=== PATIENT | male | born 1950 | race Caucasian/White ===

== ENCOUNTER 2017-07-31 07:21 | Emergency (ER) | payer MEDICARE ==
[2017-07-31] MEDS ORDERED: Pantoprazole IV* 40 MG IV ONE (07:41)
[2017-07-31 07:54] LABS: ABS Basophils 0 10^3/ul (0-0.2); ABS Eosinophils 0 10^3/ul (0-0.6); ABS Lymphocytes 0.7 10^3/ul (1.0-4.8); ABS Monocytes 0.7 10^3/ul (0-0.8); ABS Neutrophils 12.4 10^3/ul (1.5-7.7); ABS Nucleated RBC 0 10^3/ul; Eosinophil % 0.1 % (0-6); Hematocrit 52 % (42-52); Hemoglobin 17.6 g/dl (14.0-18.0); Lymphocyte % 5.3 % (25-47); Mean Corpuscular HGB Conc 34 g/dl (31-36); Mean Corpuscular Hemoglobin 30 pg (27-31); Mean Corpuscular Volume 87 fL (80-94); Mean Platelet Volume 8.4 um3 (7.4-10.4); Nucleated Red Blood Cells % 0.1; Platelet Count 315 10^3/ul (150-450); Red Blood Count 5.93 10^6/ul (4.0-5.4); Red Cell Distribution Width 14 % (10.5-15); White Blood Count 13.9 10^3/ul (3.5-10.8)
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
[2017-07-31 08:10] LABS: EGFR Non-African American 118.3 (>60)
--- NOTE | 2017-07-31 08:40 | RAD ---
HISTORY: Epigastric pain COMPARISONS: None TECHNIQUE: Multiple transverse and longitudinal ultrasound images were obtained of the right upper quadrant of the abdomen using grayscale and color Doppler imaging. FINDINGS: The study is limited by patient bowel gas. LIVER: The liver is normal in shape, size, contour, and echogenicity. There are no focal parenchymal masses. There is normal hepatopedal flow of the portal vein on Doppler imaging. BILIARY TREE: There is no intrahepatic or extrahepatic biliary dilatation. The common duct measures 0.6 cm. GALLBLADDER: The gallbladder is well-visualized. There is no cholelithiasis, gallbladder wall thickening, pericholecystic fluid, or sonographic Sherman sign. PANCREAS: The head of the pancreas is unremarkable. The tail of the pancreas is not well visualized secondary to overlying bowel gas. RIGHT KIDNEY: The right kidney is normal in shape, size, contour, and echogenicity. There is no hydronephrosis or nephrolithiasis. The right kidney measures 11.8 x 5.1 x 5.3 cm. AORTA AND IVC: The aorta and IVC are unremarkable. FLUID: There are no pleural effusions. There is no free fluid within the hepatorenal recess. OTHER FINDINGS: None. IMPRESSION: NO ACUTE SONOGRAPHIC PATHOLOGY OF THE VISUALIZED PORTION OF THE ABDOMEN.
[2017-07-31] MEDS ORDERED: Iohexol 300* (CONTRAST) 10 ML SDV IV ONE (09:13)
--- NOTE | 2017-07-31 10:28 | RAD ---
CLINICAL HISTORY: Epigastric pain COMPARISON: Ultrasound dated July 31, 2017 TECHNIQUE: Multiple contiguous axial CT scans were obtained of the abdomen and pelvis after the administration of intravenous contrast. Coronal and sagittal multiplanar reformations are submitted for review. Oral contrast was administered. Delayed images were obtained through the abdomen and pelvis. FINDINGS: LUNG BASES: The lung bases are clear. LIVER: There are transient hepatic attenuation differences that resolves ON delayed imaging. The portal vein is patent. BILE DUCTS: There is no intrahepatic or extrahepatic biliary dilatation. GALLBLADDER: There is a small calculus of the cystic duct on axial image 27 measuring 0.3 cm. The gallbladder is normal, without pericholecystic inflammatory change. PANCREAS: The pancreas is normal, without mass or ductal dilatation. SPLEEN: Normal in size and appearance. UPPER GI TRACT: Evaluation of the gastrointestinal tract is limited by incomplete gastric distention. The upper GI tract is unremarkable. SMALL BOWEL AND MESENTERY: The small bowel is normal in contour, course, and caliber. There is no obstruction or dilatation. COLON: There is diverticulosis of the descending and sigmoid colon. There is no pericolonic inflammatory change. There is a tubular, vermiform, hollow viscus that is blind ending, and originates from the cecum, consistent with a normal appendix. There is no periappendiceal inflammatory change. This is best seen on coronal images 39 through 51 ADRENALS: Normal bilaterally. KIDNEYS: There are multiple calculi of the left kidney within the calyces and renal pelvis measuring up to 1.4 cm in size. There is moderate caliectasis of the left kidney. BLADDER: The bladder is smooth in contour. PELVIC ORGANS: The prostate is mildly enlarged. The seminal vesicles are symmetric. AORTA: There is calcific atherosclerotic disease of the abdominal aorta and its branches, without aneurysmal dilatation IVC: Unremarkable LYMPH NODES: There is no lymphadenopathy by size criteria. ABDOMINAL WALL: There is a fat-containing right inguinal hernia. There is a small fat-containing umbilical hernia. BONES AND SOFT TISSUES: There are mild diffuse degenerative changes. OTHER: None IMPRESSION: 1. LEFT NEPHROLITHIASIS WITH HYDRONEPHROSIS OF THE UPPER POLE OF LEFT KIDNEY. 2. DIVERTICULOSIS. 3. THERE IS A SMALL CALCULUS OF THE CYSTIC DUCT WITHOUT PERICHOLECYSTIC INFLAMMATORY CHANGE..
[2017-07-31 11:28] LABS: Urine Appearance Clear; Urine Blood 1+ (Negative); Urine Color Yellow; Urine Ketones Negative (Negative); Urine Protein Negative (Negative); Urine Specific Gravity > 1.060 (1.010-1.030); Urine Urobilinogen Negative (Negative)
[2017-07-31] MEDS ORDERED: Ciprofloxacin 400MG IVPREMIX(* 400 MG/200 ML BAG IVPB ONE (11:30)
[2017-07-31] MEDS ORDERED: Ondansetron ODT TAB* 4 MG PO ONE (11:34)
[2017-07-31] MEDS ORDERED: Ketorolac INJ* 30 MG/ML 1 ML VIAL IV PUSH ONE (11:35)
[2017-07-31 12:25] VITALS: BP 179/100
== END 2017-07-31 12:24 | disposition home or self-care (01) ==
LOC: ED 07:21
DX: N13.2 Hydronephrosis with renal and ureteral calculous obstruction (principal); N12 Tubulo-interstitial nephritis, not specified as acute or chronic; K80.20 Calculus of gallbladder without cholecystitis without obstruction; K57.30 Diverticulosis of large intestine without perforation or abscess without bleeding
CPT/HCPCS: 36415; 74177; 76705; 80053; 81003; 81015; 83605; 83690; 84484; 85025; 86141; 87086; 93005; 96374; 96375; 99283; A9270-GY; J0744; J1885; Q9967

== ENCOUNTER 2017-08-08 10:11 | Inpatient (IN) | payer MEDICARE ==
[2017-08-08] MEDS ORDERED: NS 0.9% 1000 ML* 1,000 ML IV ONE (10:47)
[2017-08-08 11:07] LABS: ABS Basophils 0.1 10^3/ul (0-0.2); ABS Eosinophils 0.5 10^3/ul (0-0.6); ABS Lymphocytes 0.8 10^3/ul (1.0-4.8); ABS Neutrophils 6.9 10^3/ul (1.5-7.7); ABS Nucleated RBC 0 10^3/ul; Eosinophil % 5.5 % (0-6); Hematocrit 46 % (42-52); Hemoglobin 15.6 g/dl (14.0-18.0); Lymphocyte % 8.9 % (25-47); Mean Corpuscular HGB Conc 34 g/dl (31-36); Mean Corpuscular Hemoglobin 29 pg (27-31); Mean Corpuscular Volume 87 fL (80-94); Nucleated Red Blood Cells % 0.1; Platelet Count 336 10^3/ul (150-450); Red Cell Distribution Width 14 % (10.5-15); White Blood Count 9.3 10^3/ul (3.5-10.8)
[2017-08-08 11:15] LABS: INR 1.09 (0.77-1.02)
[2017-08-08 11:28] LABS: EGFR Non-African American 46.3 (>60)
--- NOTE | 2017-08-08 11:32 | RAD ---
Indication: Weakness. Single frontal view of the chest performed at 1120 hours was reviewed. Comparison is made with previous exam dated March 19, 2012. Patient is status post tracer thoracotomy. Patient appears to be status post aortic valve replacement. Prosthesis is noted overlying the left cardiac border. There is some atelectasis or scarring in the left base which has been present as March 19, 2012. IMPRESSION: POSTOPERATIVE CHANGES ARE NOTED. PROBABLE SCARRING IN THE LEFT COSTOPHRENIC ANGLE.
--- NOTE | 2017-08-08 12:42 | RAD ---
Indication: RIGHT upper quadrant pain and increased LFTs. Comparison: July 31, 2017 CT. Technique: RIGHT upper quadrant ultrasound. Report: Appropriate direction flow documented in the portal and hepatic veins. 15.3 cm liver is mildly increased in echogenicity consistent with fatty infiltration with focal sparing at the gallbladder fossa corresponding with prior CT finding. Negative for focal hepatic lesions. Negative for intrahepatic biliary dilatation. 3.8 mm common bile duct. Adequately distended gallbladder with diffuse wall thickening measuring up to 5 mm. Dependent biliary sludge. No shadowing echogenic foci to indicate cholelithiasis. Negative for pericholecystic fluid. Negative for sonographic Sherman's sign. The pancreatic tail is partially obscured due to bowel gas with the visualized pancreas unremarkable. Negative for ascites. 13.1 cm RIGHT kidney is unremarkable. IMPRESSION: 1. Fatty infiltration of the liver. 2. Diffuse gallbladder wall thickening and biliary sludge. No visualized gallstones. Negative for pericholecystic fluid or sonographic Sherman's sign. 3. Negative for biliary dilatation.
[2017-08-08 12:53] LABS: Urine Appearance Clear; Urine Blood 3+ (Negative); Urine Color Yellow; Urine Ketones Negative (Negative); Urine Protein Negative (Negative); Urine Specific Gravity 1.011 (1.010-1.030); Urine Urobilinogen Negative (Negative)
--- NOTE | 2017-08-08 17:25 | RAD ---
HISTORY: Abnormal right upper quadrant ultrasound COMPARISONS: Ultrasound dated August 08, 2017 TECHNIQUE: Hepatobiliary scintigraphy was performed. 6.1 mCi of technetium 99m mebrofenin was administered at approximately 3:15 PM on August 08, 2017. Multiple dynamic and planar images were performed. FINDINGS: There is homogeneous hepatic excretion. There is excretion within the common duct which reaches the duodenum. There is also filling of the gallbladder and cystic duct consistent with a patent cystic duct. IMPRESSION: RADIOTRACER UPTAKE IS NOTED WITHIN THE GALLBLADDER CONSISTENT WITH A PATENT CYSTIC DUCT.
[2017-08-08] MEDS ORDERED: Potassium Chlor TAB* 20 MEQ TAB.ER PO ONE (17:46)
[2017-08-08] MEDS ORDERED: Ondansetron 40 MG VIAL* 2 MG/ML 20 ML VIAL IV PRN (18:49)
[2017-08-08] MEDS ORDERED: Acetaminophen TAB* 325 MG PO PRN (18:49)
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
--- NOTE | 2017-08-08 20:29 | RAD ---
HISTORY: Previous nephrolithiasis, hydronephrosis COMPARISONS: CT dated July 31, 2017 TECHNIQUE: Multiple transverse and longitudinal ultrasound images were obtained of the kidneys and bladder using grayscale and color Doppler imaging. FINDINGS: RIGHT KIDNEY: The right kidney is normal in shape, size, contour, and echogenicity. There is no hydronephrosis or nephrolithiasis. The right kidney measures 12.3 x 5 x 5.2 cm. LEFT KIDNEY: There are multiple shadowing echogenic foci consistent with renal stones measuring up to 1.7 cm in size. There is pelvic caliectasis of the upper pole of left kidney. The left kidney measures 12.9 x 5.8 x 6.7 cm. BLADDER: The left ureteral jet is not identified. There is focal wall thickening of the left lateral wall which may be related to the prostate gland. The prevoid bladder volume is 24 milliliters.. The postvoid bladder volume is 167 milliliters. AORTA AND IVC: No images are submitted of the vasculature. RETROPERITONEUM: Unremarkable. OTHER: The prostate gland is enlarged with intraluminal extension into the bladder, measuring 3.1 x 3.2 x 4.6 cm in size for a volume of 23.8 mL. IMPRESSION: 1. LEFT NEPHROLITHIASIS WITH HYDRONEPHROSIS OF THE UPPER POLE OF THE LEFT KIDNEY. NO LEFT URETERAL JET IS IDENTIFIED. 2. THE PROSTATE GLAND IS ENLARGED WITH MILD INTRALUMINAL EXTENSION OF THE BLADDER. THERE IS MILD BLADDER WALL THICKENING ON THE LEFT WHICH MAY BE RELATED TO THE PROSTATE GLAND BUT IS INCOMPLETELY EVALUATED ON THE CURRENT EXAMINATION. 3. 167 ML POSTVOID RESIDUAL.
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
[2017-08-09 06:38] LABS: ABS Basophils 0.1 10^3/ul (0-0.2); ABS Eosinophils 0.5 10^3/ul (0-0.6); ABS Monocytes 0.8 10^3/ul (0-0.8); ABS Nucleated RBC 0 10^3/ul; Eosinophil % 6.3 % (0-6); Hematocrit 44 % (42-52); Hemoglobin 14.7 g/dl (14.0-18.0); Lymphocyte % 13.1 % (25-47); Mean Corpuscular HGB Conc 33 g/dl (31-36); Mean Corpuscular Hemoglobin 29 pg (27-31); Mean Corpuscular Volume 87 fL (80-94); Mean Platelet Volume 8.5 um3 (7.4-10.4); Nucleated Red Blood Cells % 0; Platelet Count 346 10^3/ul (150-450); Red Blood Count 5.03 10^6/ul (4.0-5.4); Red Cell Distribution Width 14 % (10.5-15); White Blood Count 7.3 10^3/ul (3.5-10.8)
[2017-08-09 06:54] LABS: EGFR Non-African American 53.6 (>60)
[2017-08-09] MEDS: Lisinopril TAB* 5 MG PO SCH (08:25)
--- NOTE | 2017-08-09 15:45 | PN ---
Subjective Date of Service: 08/09/17 Interval History: Patient continues to be pain free. Dark urine, no dysuria or hesitancy. No F/C, N/V, CP, SOB, Dizziness, Diarrhea, constipation, or other pain. Discussed surgical options with patient and surrogate decision makers as well as general surgery and urology. Family History: Unchanged from Admission Social History: Unchanged from Admission Past Medical History: Unchanged from Admission Objective Active Medications: Acetaminophen (Tylenol Tab*) 650 mg PO Q6H PRN PRN Reason: FEVER/PAIN Lactated Ringer's (Lactated Ringers 1000 Ml Bag*) 1,000 mls @ 75 mls/hr IV PER RATE [facility] Stop: 08/10/17 08:19 Last Admin: 08/09/17 12:44 Dose: 75 mls/hr Lisinopril (Prinivil Tab*) 5 mg PO DAILY [facility] Last Admin: 08/09/17 08:25 Dose: 5 mg Ondansetron HCl (Zofran 40 Mg Vial*) 4 mg IV Q6H PRN PRN Reason: NAUSEA Oxygen Devices in Use Now: None Appearance: Patient is a 66yo Male who appears stated age and is sitting in the bed in [facility]. Eyes: No Scleral Icterus, PERRLA Ears/Nose/Mouth/Throat: NL Teeth, Lips, Gums, Clear Oropharnyx, Mucous Membranes Moist Neck: NL Appearance and Movements; NL JVP, Trachea Midline Respiratory: Symmetrical Chest Expansion and Respiratory Effort, Clear to Auscultation Cardiovascular: NL Sounds; No Murmurs; No JVD, RRR, No Edema Abdominal: NL Sounds; No Tenderness; No Distention, No Hepatosplenomegaly Lymphatic: No Cervical Adenopathy Extremities: No Edema, No Clubbing, Cyanosis Skin: No Rash or Ulcers, No Nodules or Sclerosis Neurological: Alert and Oriented x 3, NL Sensation, NL Gait, - - Decreased strength in LUE. Strabismus. Stable Result Diagrams: 08/09/17 06:13 08/09/17 06:13 Additional Lab and Data: Lab Results Assess/Plan/Problems-Billing Assessment: Patient is a 66yo male with a PMH for TBI, PAF, MVP S/P repair who is admitted due to Symptomatic Cholelithiasis and Nephrolithiasis with the tentative plan for surgery on Saturday. - Patient Problems (1) Cholelithiasis Current Visit: Yes Status: Acute Comment: Likely with choledocholithiasis with passed stone. LFTs trending down. Postive HIDA and Gallbladder US showing wall thickening and sludge. No pain currently. Appreciate Surgical input. Tentative plan for surgery on Saturday pending family decision. (2) Nephrolithiasis Current Visit: Yes Status: Acute Code(s): N20.0 - CALCULUS OF KIDNEY SNOMED Code(s): 14826522 Comment: 2 large kidney stones in left kidney with partial hydronephrosis. Will need to be stented before surgery. Tentatively planned for Saturday. Does not need urgent intervention. Appreciate urology input. Will be seen in consultation. (3) PAF (paroxysmal atrial fibrillation) Current Visit: Yes Status: Acute Code(s): I48.0 - PAROXYSMAL ATRIAL FIBRILLATION SNOMED Code(s): 976872787 Comment: NSR. No palpitations. S/P Maze procedure. Likely related to MVP which has resolved. (4) HTN (hypertension) Current Visit: Yes Status: Acute Code(s): I10 - ESSENTIAL (PRIMARY) HYPERTENSION SNOMED Code(s): 51964520 Comment: Hypertensive. Started on Lisinopril earlier this month by Dr. Okeefe which he has not been taking. Restarted in hospital. (5) DVT prophylaxis Current Visit: Yes Status: Acute Code(s): XQO1412 - SNOMED Code(s): 643188849 Comment: SCDs and Ambulation. (6) MVP (mitral valve prolapse) Current Visit: Yes Status: Acute Code(s): I34.1 - NONRHEUMATIC MITRAL (VALVE ) PROLAPSE SNOMED Code(s): 431217643 Comment: S/P repair. Will monitor for fluid overload. (7) Full code status Current Visit: Yes Status: Acute Code(s): Z78.9 - OTHER SPECIFIED HEALTH STATUS SNOMED Code(s): 313020453 Status and Disposition: Inpatient pending possible surgery.
--- NOTE | 2017-08-09 21:12 | CONS ---
CC: Jimmy Alvarez MD * CONSULTATION REPORT: DATE OF CONSULT: 08/09/17 CHIEF COMPLAINT: Abdominal pain and jaundice. HISTORY OF PRESENT ILLNESS: Mr. Gamez is a 66-year-old gentleman with a past medical history significant for traumatic brain injury with memory difficulties , mitral valve regurgitation, atrial fibrillation and recent diagnosis of urinary tract infection who was admitted to the hospitalist service on . The patient had presented 10 days ago to the emergency department with upper abdominal pain, ultimately diagnosed with urinary tract infection and treated with oral ciprofloxacin for 2 weeks which he did take. The patient presented to the emergency department on 08/08/17 with jaundice, nausea and this had been noted by his friend and healthcare proxy, Nicole. He was brought to the emergency room in [facility] where he was noted to have no abdominal tenderness, but elevated total bilirubin and transaminases. An ultrasound of the abdomen was completed, which demonstrated fatty infiltration of the liver, diffuse gallbladder wall thickening and biliary sludge with no visualized gallstones and no evidence of pericholecystic fluid or Sherman sign. The common bile duct was 3.8 mm. The patient was sent also for HIDA scan, which demonstrated nonvisualization of the gallbladder. He was admitted to the hospitalist service and surgical consultation was requested. At present, the patient denies any abdominal pain. He is denying nausea, vomiting, fevers or chills. His healthcare proxy at bedside notes that his jaundice does seem to be improved. PAST MEDICAL HISTORY: Significant for the above-mentioned illnesses as well as obstructive sleep apnea and borderline hypertension. PAST SURGICAL HISTORY: Significant for mitral valve repair and appendectomy. MEDICATIONS: Include: 1. Cipro. 2. Zofran. 3. Ibuprofen. ALLERGIES: None known. FAMILY HISTORY: Reviewed from the chart and is noncontributory. SOCIAL HISTORY: He lives alone. He does not smoke or drink. PHYSICAL EXAM: He is a 66-year-old male, in no acute distress. Vital Signs: Temperature 97.9, blood pressure 137/67, pulse 77, respirations 18, O2 sat 98%. Head is normocephalic, atraumatic and sclerae anicteric. His abdomen is without scars and nondistended, soft, nontender. There are no palpable masses. No palpable hepatosplenomegaly. DIAGNOSTIC STUDIES/LAB DATA: From 08/08/17 and 08/09/17 were reviewed. His WBC is normal. Hemoglobin and hematocrit are normal as is platelet count. Chemistry is notable for total bilirubin initially 1.9 down to 1.4 today. AST of 90 down to 59, ALT of 181 down to 134 and alkaline phosphatase of 253 down to 236. Radiographic imaging was reviewed. His prior gallbladder ultrasound from showed no evidence of cholelithiasis, gallbladder wall thickening or fluid though CT scan done the same day notes gallstone present 3 mm size in the cystic duct with normal appearing gallbladder. The ultrasound from 08/08/17 indicates a thickened gallbladder wall as reported above, biliary sludge and common bile duct of 3.8 mm. Images of his HIDA scan were reviewed as well. He had an ultrasound of his kidney demonstrating nephrolithiasis on the left with hydronephrosis and enlarged prostate. He also had bladder wall thickening on the left. IMPRESSION: A 66-year-old gentleman with traumatic brain injury, history of mitral valve repair, history of atrial fibrillation, who has apparently a 10- day history of epigastric abdominal pain likely related to symptomatic gallstones and what appears to be a passed common bile duct stone. He is improving and there appears to be no need for urgent surgical intervention. PLAN/RECOMMENDATIONS: I discussed the plan with the patient and his healthcare proxy, Nicole. I explained the nature of gallstones, the potential complications and the role for surgical removal of the gallbladder. I recommended laparoscopic cholecystectomy though the timing of this is in question. The patient states he would be agreeable to the procedure. Although he has a number health issues, I did explain that I felt that the risks of surgery were outweighed by the benefits of surgery in his situation as he is certainly at risk for severe complications of gallstones including pancreatitis. It appears that the patient will be undergoing additional medical evaluation, in particular for his kidney stone. I would continue to monitor his LFTs, limit his oral intake for now and I will discuss his case with Gastroenterology in order to have their input. I did discuss with the patient and his proxy the option of ERCP with endoscopic sphincterotomy without cholecystectomy; however, I did not recommend that procedure at this time. [facility] will continue to follow. [id number]/[facility] #: [id number] TYRESE
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
[2017-08-10] MEDS: Lisinopril TAB* 5 MG PO SCH (07:55)
[2017-08-10 09:17] LABS: EGFR Non-African American 55.6 (>60)
[2017-08-10] MEDS: NS 0.9% 1000 ML* 1,000 ML IV SCH ×2 (12:33→23:27)
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
--- NOTE | 2017-08-10 15:54 | PN ---
Subjective Date of Service: 08/10/17 Interval History: Patient continues to have no complaints. No pain, F/C, N/V, SOB, diarrhea, CP, Changes in urine, pain with urination, or other pain. Patient is still amenable to surgery pending family meeting with brother and POA tomorrow to discuss risks and benefits. Family History: Unchanged from Admission Social History: Unchanged from Admission Past Medical History: Unchanged from Admission Objective Active Medications: Acetaminophen (Tylenol Tab*) 650 mg PO Q6H PRN PRN Reason: FEVER/PAIN Sodium Chloride (Ns 0.9% 1000 Ml*) 1,000 mls @ 100 mls/hr IV PER RATE [facility] Last Admin: 08/10/17 12:33 Dose: 100 mls/hr Lisinopril (Prinivil Tab*) 5 mg PO DAILY [facility] Last Admin: 08/10/17 07:55 Dose: 5 mg Ondansetron HCl (Zofran 40 Mg Vial*) 4 mg IV Q6H PRN PRN Reason: NAUSEA Vital Signs - 8 hr 08/10/17 08/10/17 08/10/17 07:57 11:32 15:14 Temperature 97.9 F 97.3 F Pulse Rate 71 71 Respiratory 18 18 15 Rate Blood Pressure 140/84 137/87 (mmHg) O2 Sat by Pulse 97 98 Oximetry Oxygen Devices in Use Now: None Appearance: Patient is a 66yo male who appears stated age and is sitting in the bed in NAD. Eyes: No Scleral Icterus, PERRLA Ears/Nose/Mouth/Throat: NL Teeth, Lips, Gums, Clear Oropharnyx, Mucous Membranes Moist Neck: NL Appearance and Movements; NL JVP, Trachea Midline Respiratory: Symmetrical Chest Expansion and Respiratory Effort, Clear to Auscultation Cardiovascular: NL Sounds; No Murmurs; No JVD, RRR, No Edema Abdominal: NL Sounds; No Tenderness; No Distention, No Hepatosplenomegaly Lymphatic: No Cervical Adenopathy Extremities: No Edema, No Clubbing, Cyanosis Skin: No Rash or Ulcers, No Nodules or Sclerosis Neurological: Alert and Oriented x 3, NL Sensation, NL Muscle Strength and Tone , - - CN II-XII intact. Result Diagrams: 08/09/17 06:13 08/10/17 08:40 Additional Lab and Data: Lab Results Assess/Plan/Problems-Billing Assessment: Patient is a 66yo male with a PMH for TBI, PAF, MVP S/P repair who is admitted due to Symptomatic Cholelithiasis and Nephrolithiasis with the tentative plan for surgery on Saturday. - Patient Problems (1) Cholelithiasis Current Visit: Yes Status: Acute Comment: Likely with choledocholithiasis with passed stone. LFTs trending down. Postive HIDA and Gallbladder US showing wall thickening and sludge. No pain currently. Appreciate Surgical input. Tentative plan for surgery on Saturday pending family decision. (2) Nephrolithiasis Current Visit: Yes Status: Acute Code(s): N20.0 - CALCULUS OF KIDNEY SNOMED Code(s): 09689340 Comment: 2 large kidney stones in left kidney with partial hydronephrosis. Will need to be stented before surgery. Tentatively planned for Saturday. Does not need urgent intervention. Appreciate urology input. Will need eventual percutaneous nephrolithotomy. (3) PAF (paroxysmal atrial fibrillation) Current Visit: Yes Status: Acute Code(s): I48.0 - PAROXYSMAL ATRIAL FIBRILLATION SNOMED Code(s): 903176220 Comment: NSR. No palpitations. S/P Maze procedure. Likely related to MVP which has resolved. (4) HTN (hypertension) Current Visit: Yes Status: Acute Code(s): I10 - ESSENTIAL (PRIMARY) HYPERTENSION SNOMED Code(s): 34313502 Comment: Hypertensive. Started on Lisinopril earlier this month by Dr. Okeefe which he has not been taking. Restarted in hospital. (5) DVT prophylaxis Current Visit: Yes Status: Acute Code(s): VAZ7132 - SNOMED Code(s): 438146263 Comment: SCDs and Ambulation. (6) TWILA (acute kidney injury) Current Visit: Yes Status: Acute Code(s): N17.9 - ACUTE KIDNEY FAILURE, UNSPECIFIED SNOMED Code(s): 84289408 Comment: Improving with fluids. FeNa indicates prerenal process. Continue gentle IV hydration. (7) MVP (mitral valve prolapse) Current Visit: Yes Status: Acute Code(s): I34.1 - NONRHEUMATIC MITRAL (VALVE ) PROLAPSE SNOMED Code(s): 421788405 Comment: S/P repair. Will monitor for fluid overload. (8) Full code status Current Visit: Yes Status: Acute Code(s): Z78.9 - OTHER SPECIFIED HEALTH STATUS SNOMED Code(s): 442893689 Status and Disposition: Inpatient pending possible surgery.
--- NOTE | 2017-08-10 18:31 | PN ---
Progress Note - Progress Note Date of Service: 08/10/17 SOAP: Subjective: Seen this AM. Denies pain, N/V. Objective: Afeb VSS Anicteric Abd: soft, benign Laboratory Results - last 24 hr 08/10/17 08:40 Sodium 141 Potassium 3.8 Chloride 105 Carbon Dioxide 30 Anion Gap 6 BUN 14 Creatinine 1.29 H Est GFR ( Amer) 71.4 Est GFR (Non-Af Amer) 55.6 BUN/Creatinine Ratio 10.9 Glucose 101 H Calcium 8.6 Total Bilirubin 1.20 H AST 30 ALT 94 H Alkaline Phosphatase 204 H C-Reactive Protein 13.71 H Total Protein 6.0 L Albumin 3.1 L Globulin 2.9 Albumin/Globulin Ratio 1.1 Assessment: Passed CBD stone. Improving. Plan: Surgery on 08/[address] Babb. Will coordinate with Dr. Awan for stent. Can try low fat diet but NPO after MN on 08/11.
[2017-08-11 06:17] LABS: EGFR Non-African American 54.6 (>60)
[2017-08-11] MEDS: Lisinopril TAB* 5 MG PO SCH (07:32)
[2017-08-11] MEDS: NS 0.9% 1000 ML* 1,000 ML IV SCH ×2 (08:59→10:40)
[2017-08-11] MEDS ORDERED: Magnesium Sulfate 2 GM IV* 2 GM/50 ML BAG IVPB ONE (11:21)
--- NOTE | 2017-08-11 11:52 | PN ---
Progress Note - Progress Note Date of Service: 08/11/17 SOAP: Subjective: Denies pain, N/V. Objective: Vital Signs Temp 97.9 F 08/11/17 07:50 Pulse 68 08/11/17 07:50 Resp 18 08/11/17 07:50 BP 136/82 08/11/17 07:50 Pulse Ox 98 08/11/17 07:50 Anicteric sclera abd: soft, ND, NT Intake & Output 08/10/17 08/11/17 08/11/17 18:59 06:59 18:59 Intake Total 2954 411 1480 Balance 4460 333 6412 Intake: IV Fluids 300 1000 NS 300 1000 Oral 1570 0 240 Other: Estimated Void Medium # Bowel Movements 1 Estimated Stool Amount Medium # Voids 3 1 Assessment: Passed CBD stone. Plan: Lap rodriguez tomorrow. NPO after MN.
--- NOTE | 2017-08-11 15:34 | PN ---
Subjective Date of Service: 08/11/17 Interval History: Patient continues to have no pain, F/C, N/V, abdominal pain, diarrhea, CP, SOB, dysuria, flank pain, dizziness, or other pain. Discussed at length with POA, Brother and patient the risks and benefits of various timings of surgery and stent placement and they were in agreement that the ideal timing would be tomorrow for both procedures. Family History: Unchanged from Admission Social History: Unchanged from Admission Past Medical History: Unchanged from Admission Objective Active Medications: Acetaminophen (Tylenol Tab*) 650 mg PO Q6H PRN PRN Reason: FEVER/PAIN Sodium Chloride (Ns 0.9% 1000 Ml*) 1,000 mls @ 50 mls/hr IV PER RATE [facility] Stop: 08/13/17 06:25 Last Admin: 08/11/17 10:40 Dose: 50 mls/hr Ondansetron HCl (Zofran 40 Mg Vial*) 4 mg IV Q6H PRN PRN Reason: NAUSEA Vital Signs - 8 hr 08/11/17 08/11/17 07:34 07:50 Temperature 97.9 F Pulse Rate 68 Respiratory 16 18 Rate Blood Pressure 136/82 (mmHg) O2 Sat by Pulse 98 Oximetry Oxygen Devices in Use Now: None Appearance: Patient is a 66yo male who appears stated age and is sitting in the bed in NAD. Eyes: PERRLA, - - Slight residual icterus. Ears/Nose/Mouth/Throat: NL Teeth, Lips, Gums, Clear Oropharnyx, Mucous Membranes Moist Neck: NL Appearance and Movements; NL JVP, Trachea Midline Respiratory: Symmetrical Chest Expansion and Respiratory Effort, Clear to Auscultation Cardiovascular: NL Sounds; No Murmurs; No JVD, RRR, No Edema Abdominal: NL Sounds; No Tenderness; No Distention, No Hepatosplenomegaly Lymphatic: No Cervical Adenopathy Extremities: No Edema, No Clubbing, Cyanosis Skin: No Rash or Ulcers, No Nodules or Sclerosis Neurological: Alert and Oriented x 3, NL Sensation, - - Left arm weakness, Strabismus. A/Ox3. Result Diagrams: 08/09/17 06:13 08/11/17 05:33 Additional Lab and Data: Lab Results Assess/Plan/Problems-Billing Assessment: Patient is a 66yo male with a PMH for TBI, PAF, MVP S/P repair who is admitted due to Symptomatic Cholelithiasis and Nephrolithiasis with the tentative plan for surgery on Saturday. - Patient Problems (1) Cholelithiasis Current Visit: Yes Status: Acute Comment: Likely with choledocholithiasis with passed stone. LFTs trending down. Postive HIDA and Gallbladder US showing wall thickening and sludge. No pain currently. Appreciate Surgical and GI input. Cholecystectomy Tomorrow with stent placement intraoperatively. Patient is medically optimized for surgery. RCRI of 0 indicating a .4% risk of cardiovascular event. No functional limitations at baseline. Previous Echo shows only trace mitral regurgitation and stenosis. (2) Nephrolithiasis Current Visit: Yes Status: Acute Code(s): N20.0 - CALCULUS OF KIDNEY SNOMED Code(s): 91665158 Comment: 2 large kidney stones in left kidney with partial hydronephrosis. Will need to be stented before surgery. Planned for Saturday. Does not need urgent intervention. Appreciate urology input. Will need eventual percutaneous nephrolithotomy. (3) PAF (paroxysmal atrial fibrillation) Current Visit: Yes Status: Acute Code(s): I48.0 - PAROXYSMAL ATRIAL FIBRILLATION SNOMED Code(s): 943354464 Comment: NSR. No palpitations. S/P Maze procedure. Likely related to MVP which has resolved. (4) HTN (hypertension) Current Visit: Yes Status: Acute Code(s): I10 - ESSENTIAL (PRIMARY) HYPERTENSION SNOMED Code(s): 21468508 Comment: Hypertensive. Started on Lisinopril earlier this month by Dr. Okeefe which he has not been taking. Restarted in hospital. (5) DVT prophylaxis Current Visit: Yes Status: Acute Code(s): FWY8106 - SNOMED Code(s): 178682300 Comment: SCDs and Ambulation. (6) TWILA (acute kidney injury) Current Visit: Yes Status: Acute Code(s): N17.9 - ACUTE KIDNEY FAILURE, UNSPECIFIED SNOMED Code(s): 90784447 Comment: Improving with fluids. FeNa indicates prerenal process. Continue gentle IV hydration. (7) MVP (mitral valve prolapse) Current Visit: Yes Status: Acute Code(s): I34.1 - NONRHEUMATIC MITRAL (VALVE ) PROLAPSE SNOMED Code(s): 130824870 Comment: S/P repair. Will monitor for fluid overload. Only trace on Most recent echo. (8) Full code status Current Visit: Yes Status: Acute Code(s): Z78.9 - OTHER SPECIFIED HEALTH STATUS SNOMED Code(s): 741781723 Status and Disposition: Inpatient pending possible surgery.
[2017-08-12] MEDS: NS 0.9% 1000 ML* 1,000 ML IV SCH (05:11)
--- NOTE | 2017-08-12 08:25 | PN ---
Subjective Date of Service: 08/12/17 Interval History: Mr. Gamez reports that he feels a bit funny and out of it after surgery. He denies chest pain, SOB, nausea, or abdominal pain. Family History: Unchanged from Admission Social History: Unchanged from Admission Past Medical History: Unchanged from Admission Objective Active Medications: Acetaminophen (Tylenol Tab*) 650 mg PO Q6H PRN Sodium Chloride (Ns 0.9% 1000 Ml*) 1,000 mls @ 50 mls/hr IV PER RATE [facility] Ondansetron HCl (Zofran 40 Mg Vial*) 4 mg IV Q6H PRN Vital Signs: Temp Pulse Resp BP Pulse Ox 98.0 F 65 16 143/87 96 08/12/17 07:45 08/12/17 07:45 08/12/17 07:48 08/12/17 07:45 08/12/17 07:45 Oxygen Devices in Use Now: None Appearance: Male lying in bed in NAD Eyes: No Scleral Icterus Ears/Nose/Mouth/Throat: Mucous Membranes Moist Neck: Trachea Midline Respiratory: Symmetrical Chest Expansion and Respiratory Effort, Clear to Auscultation Cardiovascular: NL Sounds; No Murmurs; No JVD, No Edema Abdominal: NL Sounds; No Tenderness; No Distention Lymphatic: No Cervical Adenopathy Extremities: No Edema Skin: No Rash or Ulcers Neurological: Alert and Oriented x 3, NL Muscle Strength and Tone Nutrition: Taking PO's Result Diagrams: 08/12/17 08:16 08/12/17 08:16 Additional Lab and Data: . Assess/Plan/Problems-Billing Assessment: Mr. Gamez is a 66yo male with a PMH for TBI, PAF, MVP S/P repair who is admitted due to symptomatic cholelithiasis and nephrolithiasis now s/p cholecystectomy. - Patient Problems (1) Choledocholithiasis Comment: - Now s/p cholecystectomy. - Appreciate Surgical and GI input. (2) Nephrolithiasis Comment: - Now s/p ureteral stent. - Appreciate urology input. Will need eventual percutaneous nephrolithotomy. (3) TWILA (acute kidney injury) Comment: - Resolved with hydration. (4) HTN (hypertension) Comment: - SBP 140-160s. - Continue lisinopril. (5) MVP (mitral valve prolapse) Comment: - S/P repair. Will monitor for fluid overload. (6) PAF (paroxysmal atrial fibrillation) Comment: - NSR. No palpitations. S/P Maze procedure. Likely related to MVP which has resolved. (7) DVT prophylaxis Comment: - SCDs and Ambulation. (8) Full code status Comment: Status and Disposition: Inpatient. Anticipate discharge to home when medically stable.
[2017-08-12 08:32] LABS: ABS Basophils 0.1 10^3/ul (0-0.2); ABS Eosinophils 0.5 10^3/ul (0-0.6); ABS Lymphocytes 1.2 10^3/ul (1.0-4.8); ABS Monocytes 0.6 10^3/ul (0-0.8); ABS Neutrophils 5.8 10^3/ul (1.5-7.7); ABS Nucleated RBC 0 10^3/ul; Eosinophil % 5.8 % (0-6); Hematocrit 44 % (42-52); Hemoglobin 14.7 g/dl (14.0-18.0); Lymphocyte % 14.4 % (25-47); Mean Corpuscular HGB Conc 33 g/dl (31-36); Mean Corpuscular Hemoglobin 29 pg (27-31); Mean Corpuscular Volume 88 fL (80-94); Mean Platelet Volume 8.4 um3 (7.4-10.4); Nucleated Red Blood Cells % 0; Platelet Count 311 10^3/ul (150-450); Red Blood Count 5.06 10^6/ul (4.0-5.4); Red Cell Distribution Width 14 % (10.5-15); White Blood Count 8.1 10^3/ul (3.5-10.8)
[2017-08-12 08:53] LABS: EGFR Non-African American 62.2 (>60)
--- NOTE | 2017-08-12 10:31 | PN ---
Progress Note - Progress Note Date of Service: 08/12/17 SOAP: Subjective: Patient seen and examined this morning Clinical history and work-up all reviewed I discussed his care with Dr. Jarrell and Dr. Awan He feels well today-no abdominal pain and he is hungry Objective: Temp Pulse Resp BP Pulse Ox 98.0 F 65 16 143/87 96 08/12/17 07:45 08/12/17 07:45 08/12/17 07:48 08/12/17 07:45 08/12/17 07:45 PEX: Comfortable sitting up in bed Lungs are clear Abd is soft and non-distended. There is no tenderness or mass noted. Laboratory Results - last 24 hr 08/12/17 08/12/17 08:16 08:16 WBC 8.1 RBC 5.06 Hgb 14.7 Hct 44 MCV 88 MCH 29 MCHC 33 RDW 14 Plt Count 311 MPV 8.4 Neut % (Auto) 71.5 Lymph % (Auto) 14.4 L Villalba % (Auto) 7.5 H Eos % (Auto) 5.8 Baso % (Auto) 0.8 Absolute Neuts (auto) 5.8 Absolute Lymphs (auto) 1.2 Absolute Monos (auto) 0.6 Absolute Eos (auto) 0.5 Absolute Basos (auto) 0.1 Absolute Nucleated RBC 0 Nucleated RBC % 0 Sodium 142 Potassium 3.5 Chloride 106 Carbon Dioxide 30 Anion Gap 6 BUN 11 Creatinine 1.17 Est GFR ( Amer) 80.0 Est GFR (Non-Af Amer) 62.2 BUN/Creatinine Ratio 9.4 Glucose 93 Calcium 8.3 L Total Bilirubin 0.90 Direct Bilirubin 0.30 H Indirect Bilirubin 0.6 AST 20 ALT 51 Alkaline Phosphatase 161 H Total Protein 6.0 L Albumin 3.1 L Globulin 2.9 Albumin/Globulin Ratio 1.1 US/CT/Labs/HIDA all reviewed Assessment: Epigastric pain now resolved, elevated LFT's now returning to normal, HIDA scan shows non-filling of the GB and last US showed mild thickening of the GB wall but no obvious gallstones. His recent symptoms are consistent with biliary disease. He has no further abdominal pain. He may have passed a stone and now appears to have chronic cholecystitis. Plan: Recommend proceeding with laparoscopic cholecystectomy to prevent further gallbladder symptoms and infection. I discussed all of the above with him and our recommendation of proceeding with surgery. He would like to proceed. The procedure was discussed with him in detail, and the risks of, but not limited to, of bleeding, infection, bile duct injury, bile leak, injury to peritoneal and retroperitoneal structures, open procedure, drain placement, risks of blood clots, and anesthetic risks all explained. I will also talk with his caregiver, Nicole who he says will be present today. PLAN: Laparoscopic cholecystectomy today.
[2017-08-12] MEDS ORDERED: Iohexol 180 (CONTRAST) 10 ML SDV IV ONE ×2 (10:54→12:00)
[2017-08-12] MEDS ORDERED: Labetalol IV* 5 MG/ML 20 ML VIAL ONE (11:31)
[2017-08-12] MEDS ORDERED: cefTRIAXone(*) 1 GM ADVAN/BAG ONE (11:40)
[2017-08-12] MEDS ORDERED: Ondansetron ODT TAB* 4 MG ONE (11:51)
[2017-08-12] MEDS ORDERED: Lidocaine 2% PF * 5 ML VIAL ONE (11:51)
[2017-08-12] MEDS ORDERED: Midazolam* 1 MG/ML 5 ML VIAL (5 MG) ONE (11:51)
[2017-08-12] MEDS ORDERED: Dexamethasone IV* 4 MG/ML 1 ML (4 MG) ONE (11:51)
[2017-08-12] MEDS ORDERED: fentaNYL* 50 MCG/ML 5 ML VIAL (250 MCG VIAL) ONE (11:51)
[2017-08-12] MEDS ORDERED: Cisatracurium* 2 MG/ML MDV 5 ML ONE (11:51)
[2017-08-12] MEDS ORDERED: Propofol* 10 MG/ML 20 ML BTL IV PUSH ONE ×2 (11:51→13:24)
[2017-08-12] MEDS ORDERED: KETAMINE HCL* 50 MG/ML 10 ML VIAL ONE (11:51)
[2017-08-12] MEDS ORDERED: EPHEDrine (Pressors)* 50 MG/ML VIAL ONE (11:51)
[2017-08-12] MEDS ORDERED: Bupivacaine 0.5% SDV PF* 30ML VIAL ONE (13:29)
[2017-08-12] MEDS ORDERED: Lidocaine 1% MPF wEPI 200,000* 30 ML SDV ONE (13:29)
[2017-08-12] MEDS ORDERED: Naloxone* 0.4 MG/ML 1 ML VIAL IV PRN (13:34)
[2017-08-12] MEDS ORDERED: Ondansetron ODT TAB* 4 MG PO PRN (13:34)
[2017-08-12] MEDS ORDERED: fentaNYL* 50 MCG/ML 2 ML VIAL (100 MCG VIAL) IV PRN (13:34)
[2017-08-12] MEDS ORDERED: fentaNYL* 50 MCG/ML 2 ML VIAL (100 MCG VIAL) ONE ×2 (13:49→14:43)
--- NOTE | 2017-08-12 13:49 | RAD ---
INDICATION: Cystoscopy, left stent insertion COMPARISONS: Ultrasound dated August 08, 2017 TECHNIQUE: Fluoroscopy was provided for a retrograde pyelogram and stent placement. Total fluoroscopy time is: 5 seconds FINDINGS: Spot images demonstrate contrast within the left renal collecting system. A ureteral stent is noted. IMPRESSION: FLUOROSCOPY WAS PROVIDED FOR A RETROGRADE PYELOGRAM AND STENT PLACEMENT CPT II Codes: G9500
--- NOTE | 2017-08-12 14:58 | BRIEFOPN ---
Brief Operative Note - Surgery Procedures: Procedures OPERATIVE REPORT PRE-OP: Acute cholecystitis POST-OP: Acute acalculous cholecystitis PROCEDURE: Laparoscopic subtotoal cholecystectomy, fenestrated technique SURGEON: MD Skinny ANESTHESIA:Local and General with Dr. Choudhury ASST: Mannie Lucas NP IVF: 1 liter of crystalloid EBL: min SPECIMEN: Portion of gallbladder DRAIN: #10 MARIAM in right upper quadrant WOUND CLASS: 3 COMPLICATIONS: none TO PACU
[2017-08-12] MEDS ORDERED: oxyCODONE/Acetamin 5/325 MG* TAB PO PRN (15:00)
[2017-08-12] MEDS ORDERED: Morphine VIAL* 4 MG/ML VIAL (1 ml vial) IV PRN (15:01)
[2017-08-12] MEDS ORDERED: Piperacillin/Tazobac ADVAN(*) 3.375 GM in NS 0.9% 100 ML* 100 ML IVPB ONE (15:02)
[2017-08-12] MEDS ORDERED: Zosyn per Pharmacy* NOTE FOLLOW UP SCH (16:00)
[2017-08-12] MEDS: ZOSYN 3.375 GM Q8H per EXTENDED INFUSION IVPB SCH ×2 (21:27)
[2017-08-13] MEDS: ZOSYN 3.375 GM Q8H per EXTENDED INFUSION IVPB SCH ×6 (05:56→21:01)
--- NOTE | 2017-08-13 07:46 | PN ---
Subjective Date of Service: 08/13/17 Interval History: Mr. Gamez reports that he is feeling quite well today. He is tolerating oral intake and reports no abdominal pain. He further denies chest pain, SOB, or nausea. He is ambulating in his room independently. Family History: Unchanged from Admission Social History: Unchanged from Admission Past Medical History: Unchanged from Admission Objective Active Medications: Acetaminophen (Tylenol Tab*) 650 mg PO Q6H PRN Piperacillin Sod/Tazobactam (Sod 3.375 gm/ Sodium Chloride) 100 mls @ 25 mls/ hr IVPB Q8H [facility] Morphine Sulfate (Morphine Vial*) 2 mg IV Q2H PRN Ondansetron HCl (Zofran 40 Mg Vial*) 4 mg IV Q6H PRN Oxycodone/Acetaminophen (Percocet 5/325 Tab*) 1 tab PO Q4H PRN Pharmacy Consult (Zosyn Per Pharmacy*) 1 note FOLLOW UP .ZOSYN PER PHARMACY [facility] Vital Signs: Temp Pulse Resp BP Pulse Ox 97.9 F 72 18 142/74 96 08/13/17 07:34 08/13/17 07:34 08/13/17 08:04 08/13/17 07:34 08/13/17 07:34 Oxygen Devices in Use Now: None Appearance: Male lying in bed in NAD Eyes: No Scleral Icterus Ears/Nose/Mouth/Throat: Mucous Membranes Moist Neck: Trachea Midline Respiratory: Symmetrical Chest Expansion and Respiratory Effort, Clear to Auscultation Cardiovascular: NL Sounds; No Murmurs; No JVD, No Edema Abdominal: NL Sounds; No Tenderness; No Distention Extremities: No Edema Skin: - - Scattered raised, circular rash to lower extremities (patient reports is chronic and related to lupus) Neurological: Alert and Oriented x 3, NL Muscle Strength and Tone Nutrition: Taking PO's Result Diagrams: 08/12/17 08:16 08/12/17 08:16 Additional Lab and Data: . Assess/Plan/Problems-Billing Assessment: Mr. Gamez is a 66yo male with a PMH for TBI, PAF, MVP S/P repair who is admitted due to symptomatic cholelithiasis and nephrolithiasis now s/p cholecystectomy. - Patient Problems (1) Choledocholithiasis Comment: - Now POD # 1 s/p cholecystectomy with MARIAM drain. - Appreciate Surgical and GI input. - Continue zosyn. (2) Nephrolithiasis Comment: - Now s/p ureteral stent. - Appreciate urology input. Will need eventual percutaneous nephrolithotomy. (3) TWILA (acute kidney injury) Comment: - Resolved with hydration. (4) HTN (hypertension) Comment: - SBP 140-160s. - Continue lisinopril. (5) MVP (mitral valve prolapse) Comment: - S/P repair. Will monitor for fluid overload. (6) PAF (paroxysmal atrial fibrillation) Comment: - NSR. No palpitations. S/P Maze procedure. Likely related to MVP which has resolved. (7) DVT prophylaxis Comment: - SCDs and Ambulation. (8) Full code status Comment: Status and Disposition: Inpatient. Anticipate discharge to home when medically stable.
--- NOTE | 2017-08-13 09:01 | OP ---
OPERATIVE REPORT: DATE OF OPERATION: 08/12/17 DATE OF : 48 SURGEON: Jozef Awan MD ANESTHESIOLOGIST: Leobardo Choudhury MD ANESTHESIA: General. PRE-OP DIAGNOSIS: Left renal calculi. POST-OP DIAGNOSIS: Left renal calculi. OPERATIVE PROCEDURE: 1. Cystoscopy. 2. Left retrograde pyelography. 3. Placement of left ureteral stent (6-Dominican). INDICATIONS: Mr. Gamez is a 66-year-old white male, who was admitted a few days ago with biliary colic, and who was noted on the CT of abdomen and pelvis to have multiple left renal calculi with the largest measuring about 1.5 cm located in the left renal pelvis. No associated hydronephrosis. The patient is asymptomatic from his left kidney. The patient is scheduled to undergo a cholecystectomy today. Because of concern about the patient developing an episode of left renal colic if the stones were to drop into the ureter and the fact that he is already undergoing a procedure under anesthesia, decision was made to place a left ureteral stent in preparation for definitive treatment of the stones. PATHOLOGY AT CYSTOSCOPY: The penile and bulbar urethrae looked normal. The prostatic urethra measured about 2.5 cm in length and there was moderate obstruction by prostate enlargement. Examination of the bladder showed no suspicious bladder lesions. No calculi or diverticula were noted. The ureteral orifices looked normal. Fluoroscopy of the left kidney showed multiple radiopaque renal calculi. Upon left retrograde pyelography, there was no hydronephrosis noted. Rectal exam at the end of the procedure showed a moderately enlarged, but non- suspicious and non-indurated prostate. DESCRIPTION OF PROCEDURE: After successful general anesthesia, the patient was placed in the lithotomy position and was prepped and draped for a cystoscopy. Cystoscopy was then performed. The bladder was inspected and the above findings were noted. A flexible-tipped guidewire was then introduced into the left orifice and positioned under fluoroscopic guidance in the area of the renal pelvis. A size 5- Dominican open-ended catheter was fed on top of the guidewire and retrograde pyelography was performed. A 6-Dominican stent was then placed with the proximal end coiling in the collecting system and distal end coiling inside the bladder. The cystoscope was removed. A size 16-Dominican Braxton catheter was then passed inside the bladder. Rectal examination was then performed. The patient tolerated the procedure well and Dr. Babb proceeded with the planned cholecystectomy. [id number]/[facility] #: [id number] [facility]TD[facility]
--- NOTE | 2017-08-13 09:14 | PN ---
Progress Note - Progress Note Date of Service: 08/13/17 Note: Surgery Progress: S: Denies pain. Eating breakfast. No N/V. Ambulating. Current Medications Acetaminophen (Tylenol Tab*) 650 mg PO Q6H PRN PRN Reason: FEVER/PAIN Piperacillin Sod/Tazobactam (Sod 3.375 gm/ Sodium Chloride) 100 mls @ 25 mls/ hr IVPB Q8H JAVI Last Admin: 08/13/17 05:56 Dose: 25 mls/hr Morphine Sulfate (Morphine Vial*) 2 mg IV Q2H PRN PRN Reason: PAIN - MILD Ondansetron HCl (Zofran 40 Mg Vial*) 4 mg IV Q6H PRN PRN Reason: NAUSEA Oxycodone/Acetaminophen (Percocet 5/325 Tab*) 1 tab PO Q4H PRN PRN Reason: PAIN Pharmacy Consult (Zosyn Per Pharmacy*) 1 note FOLLOW UP .ZOSYN PER PHARMACY ON LICENSE OF [facility] O: Vital Signs - 8 hr 08/13/17 08/13/17 08/13/17 02:53 03:58 07:34 Temperature 97.7 F 97.9 F Pulse Rate 77 72 Respiratory 18 16 Rate Blood Pressure 128/79 142/74 (mmHg) O2 Sat by Pulse 95 94 96 Oximetry 08/13/17 08:04 Temperature Pulse Rate Respiratory 18 Rate Blood Pressure (mmHg) O2 Sat by Pulse Oximetry Intake and Output Last 24 Hours 08/11/17 08/12/17 08/13/17 08/14/17 06:59 06:59 06:59 06:59 Intake Total 1870 2340 4401 Output Total 1590 Balance 1870 2340 2811 Intake: IV Fluids 300 1150 4351 ABX - ZOSYN 213 LR 2400 NS 300 1150 1688 NS 50ML, Ceftriazone 1G 50 Oral 1570 1190 50 Output: MARIAM #1 240 Urine 1150 Braxton 200 Other: Estimated Void Medium Medium Small # Bowel Movements 0 0 Estimated Stool Amount Medium # Voids 1 0 1 Gen: NAD, sitting up, eating Heart: reg Lungs: few bibasilar crackles, L> R; upper lang[place] clear Abd: MARIAM w/ light serosang drainage; no bile; lap incisions clean and dry (small amts of dried bloody drainage on steristrips); soft; nontender to palp A: s/p lap rodriguez (subtotal) for acute acalculous cholecystitis; doing well P: cont MARIAM drain; IV abx (poss d/c 08/14 on po abx w/ drain?); will d/w Dr. Babb
--- NOTE | 2017-08-13 12:08 | OP ---
DATE OF OPERATION: 08/12/17 - ROOM #407 DATE OF : 48 SURGEON: Domingo Babb MD LIGHT CLEANER: Jonelle Lucas NP ANESTHESIOLOGIST: Leobardo Choudhury MD ANESTHESIA: General with local. PRE-OP DIAGNOSIS: Acute cholecystitis. POST-OP DIAGNOSIS: Acute acalculous cholecystitis. OPERATIVE PROCEDURE: Laparoscopic subtotal cholecystectomy, fenestrated technique. INDICATIONS: Mr. Neal Gamez is a 66-year-old gentleman presenting to the emergency room with jaundice and elevated liver function tests. He had been seen in the emergency room 10 days prior, was felt to have pyelonephritis but also had epigastric discomfort. At that time, ultrasound of this gallbladder showed no gallstones or wall thickening and his LFTs were unremarkable. CAT scan of the abdomen and pelvis showed similar findings. He returned to emergency room almost 10 days later with apparent jaundice, noted to have elevated liver transaminases and mildly elevated bilirubin. His pain improved and he underwent an ultrasound of his gallbladder. It showed a gall-bladder wall thickening without gallstones with no ductal dilation. There was no pericholecystic fluid. The HIDA scan, however, showed nonfilling of the gallbladder consistent with acute cholecystitis. After review of his recent history and clinical course, it was felt that he has acute cholecystitis, most likely acalculous and the possibility of a passed gallstone do explain the elevated liver transaminases, bilirubin, or this is simply secondary to inflammation that has improved with supportive care. After discussion with the patient and his caregiver, it is recommended that he undergo cholecystectomy for his cholecystitis to prevent future complications. The procedure including its risks, benefits, and alternatives were all explained to the patient and documented in the preoperative progress note. ESTIMATED BLOOD LOSS: Minimal. IV FLUIDS: 1 L of crystalloid. SPECIMEN: Portions of gallbladder. DRAINS: #10 MARIAM drain in the right upper quadrant. COMPLICATIONS: None. FINDINGS: The patient had acute acalculous cholecystitis with significant gallbladder wall thickening and pericholecystic inflammation making a complete cholecystectomy impossible to complete and a partial cholecystectomy was performed with the drain placement. There were no gallstones noted within the gallbladder. DESCRIPTION OF PROCEDURE: Written informed consent was obtained, the abdomen was marked with indelible ink, and the patient had received preoperative antibiotics. He was taken to the operating room, placed in the supine position. Sequential compression devices and warming blanket were applied. General anesthesia was administered and the abdomen was prepped and draped in the usual sterile fashion. Time-out verification was completed. Under direct vision, a small transverse incision was made just above the umbilicus and the peritoneal cavity was entered under direct vision. A 12-mm blunt port was inserted and the abdomen was insufflated to 15 mmHg. Under direct vision, an 11-mm epigastric port was placed and two 5-mm ports were placed in the right side of the abdominal wall. Upon evaluating the right upper quadrant, the liver was mildly nodular but not consistent with cirrhosis, it was otherwise normal. There were omental adhesions, which appeared to be chronic and acute to the gallbladder. The gallbladder was thick walled and whitish grayish in color. There was no evidence of gangrene. The upper part of the omental adhesions were taken down sharply to expose the fundus and tip of the gallbladder. We were unable to grasp the gallbladder due to its thickness and distention, thus it was decompressed with an 18-gauge needle of about 60 cc of a light green thicker bile. We were able to grasp the gallbladder and elevate it up over the liver bed. The omental adhesions were taken down. There was stomach adherent to the gallbladder as well. In assessing what appeared to be the infundibular area, there was a very dense inflammatory reaction and there was no surgical plane that I could identify to separate the gallbladder from some of the surrounding fatty inflammatory process and although there was no significant pericholecystic fluid, I felt after attempting several areas to dissect and identify the infundibulum that to proceed through this inflammatory process was not only impossible but would be inadvisable due to risk of injury to bile duct and other portal structures. Thus, the decision was made to proceed with the subtotal cholecystectomy. I opened the gallbladder more towards the body and tip on the anterior surface and took off the anterior surface of the gallbladder down to the infundibulum. This wall was very thick and tough but using the hook cautery, I was able to divide this area down into the infundibular area. I did cross and I did divide the cystic artery and this was clipped for hemostatic control. It should be noted that there were no gallstones in the gallbladder, but there was a small amount of thin greenish light green bile; this was suctioned and irrigated. I removed as much of the anterior portion of the gallbladder from the top down towards the infundibulum and leaving the back wall on the liver as well as "a cup of gallbladder tissue down to the area where I felt that the gallbladder began to taper into the cystic duct." At no time did I identify any other cystic duct or other biliary anatomy. Once complete, hemostasis was assured. The right upper quadrant was irrigated with a liter or two of saline. A #10 MARIAM drain was brought out through a separate stab wound on the right side of the abdominal wall, placed in the Stubbs's pouch up into the gallbladder fossa. All ports were then removed under direct vision of the camera. The drain was sutured to the skin with several 3-0 Prolene suture. The fascial defect at the umbilicus was closed with interrupted 0 Vicryl suture in a transverse orientation. Additional Marcaine was infiltrated in the incisions and they were closed with subcuticular 4-0 Vicryl suture. Steri-Strips were applied. The patient tolerated the procedure well, was taken to the recovery room in stable condition. [id number]/[facility] #: [id number] TYRESE
[2017-08-14] MEDS: ZOSYN 3.375 GM Q8H per EXTENDED INFUSION IVPB SCH ×2 (05:19)
--- NOTE | 2017-08-14 09:59 | PN ---
Progress Note - Progress Note Date of Service: 08/14/17 SOAP: Subjective:POD#2 s/p Laparoscopic cholecystectomy denies pain,eating low fat diet,no n/v,passing flatus,using inspiron,walking around his room [] Objective:afeb,VSS;lungs:few bibasilar crackles,no wheezes or rhonchi;heart:RRR; abd:+bs;soft; nondistended;incisions intact with steristrips,no erythema;MARIAM drain with serosang output,no obvious bile;exit site C/D/I,dressing replaced;Ext :nontender calves [] Assessment:doing well s/p lap cholecystectomy,wants to go home [] Plan:discharge home today if ok from medical standpoint(discussed with [employer] Leyla Ma);MARIAM drain teaching done with patient;he will be staying with his ex Nicole and she will also learn MARIAM drain care;Augmentin 875mg prescribed for 10days;discharge instructions reviewed and followup office visit scheduled with Dr Babb on 08/20/17.The patient will also schedule an appointment with DR Awan to discuss ureteral stent removal. []
[2017-08-14 10:07] VITALS: BP 129/91
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
--- NOTE | 2017-08-14 12:06 | RAD ---
HISTORY: Follow-up stent placement COMPARISONS: August 12, 2017 VIEWS: Frontal views of the abdomen. FINDINGS: BOWEL: There is a nonspecific bowel gas pattern, with nondilated small bowel gas noted. There is a large amount of stool within the colon. CALCULI: Again noted is a 1.5 cm left renal calculus. A left ureteral stent is noted. BONES AND SOFT TISSUES: Mild degenerative changes are noted. OTHER FINDINGS: There is postsurgical change to the cardiac silhouette. The patient is status post median sternotomy. A surgical drain is noted on the right. There is no subphrenic gas. IMPRESSION: LEFT NEPHROLITHIASIS WITH A LEFT URETERAL STENT.
--- NOTE | 2017-08-15 05:49 | DS ---
CC: Dr. Awan; Dr. Juve Chin * DISCHARGE SUMMARY: DATE OF ADMISSION: 08/08/17 DATE OF SURGERY: 08/12/17 DATE OF DISCHARGE: 08/14/17. SURGEON: Domingo Babb MD * (DICTATED BY MOOKIE REDD NP) HOSPITAL COURSE: Mr. Gamez is a 66-year-old male who presented to the emergency room with jaundice and elevated liver function tests. He had been seen in the emergency room 10 days prior, was felt to have pyelonephritis, but also had epigastric discomfort. At that time, ultrasound of the gallbladder showed no gallstones or wall thickening and his LFTs were unremarkable. CAT scan of the abdomen and pelvis showed similar findings. He returned to the emergency room 10 days later with apparent jaundice, noted to have elevated liver transaminases and mildly elevated bilirubin. His pain improved and he underwent ultrasound of the gallbladder, it showed a thickened gallbladder wall without gallstones or ductal dilation. There was no pericholecystic fluid. The HIDA scan showed non-filling of the gallbladder consistent with acute cholecystitis. After review of his recent history and clinical course, it was felt that he had a calculus, acute cholecystitis and the possibility of a passed gallstone to explain the elevated liver transaminases and bilirubin. After discussion with the patient and his caregiver, Dr. Babb recommended laparoscopic cholecystectomy for prevention of future complications. The operative procedure was laparoscopic subtotal cholecystectomy with fenestrated technique. A Evans-Yi drain was left in place. Postoperatively, he has done very well, he has been maintained on Zosyn; he has not required any pain medication. He has been afebrile with stable vital signs; he is tolerating a low-fat diet without nausea or vomiting; he is passing flatus and ambulating. He is urinating in large amounts. The Evans-Yi drain has serosanguineous output with no obvious bile. Lungs with few bibasilar crackles, otherwise clear. No rales or wheezes. Heart : Regular rate and rhythm. No murmurs or rubs. Abdomen: Laparoscopic incision sites are intact with Steri-Strips, no surrounding erythema, no active bleeding or drainage. Evans-Yi drain patent with serosanguineous drainage , no obvious bile and the exit site is clean and dry and intact with sutures. Bowel sounds are present and his abdomen is soft and nondistended. IMPRESSION: Status post laparoscopic subtotal cholecystectomy, fenestrated technique. PLAN: Discharge home today. I discussed the discharge plan with nurse practitioner, Renee Ma from the hospitalist service and she will see him today; he will have the MARIAM drain in place for approximately two weeks; I taught him MARIAM drain care and his caregiver will also learn MARIAM drain care; he will take Augmentin 875 mg p.o. b.i.d. for 10 days and that prescription was transmitted to his pharmacy today; no opioid prescriptions were provided as the patient denies any pain. He will have office followup with Dr. Babb on 08/20/17 at our office; he will also call Dr. Awan's office for an appointment to discuss ureteral stent removal. MOOKIE REDD NP [id number]/[facility] #: [id number] TYRESE
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
== END 2017-08-14 12:20 | disposition home or self-care (01) | DRG 418 ==
LOC: ED 10:11 → MED 18:49 → OBSVTOIN 08-09 10:14 → MED 08-13 08:02
PROVIDERS: ADMIT Internal Medicine; ATTEND Internal Medicine
PROC: 0T778DZ Dilation of Left Ureter with Intraluminal Device, Via Natural or Artificial Opening Endoscopic (ICD-10-PCS; 2017-08-12)
PROC: BT1FZZZ Fluoroscopy of Left Kidney, Ureter and Bladder (ICD-10-PCS; 2017-08-12)
PROC: 0FB44ZZ Excision of Gallbladder, Percutaneous Endoscopic Approach (ICD-10-PCS; principal; 2017-08-12 13:00)
PROC: 0DNU4ZZ Release Omentum, Percutaneous Endoscopic Approach (ICD-10-PCS; 2017-08-12 13:00)
DX: K80.42 Calculus of bile duct with acute cholecystitis without obstruction (principal); N17.9 Acute kidney failure, unspecified; G81.94 Hemiplegia, unspecified affecting left nondominant side; N13.6 Pyonephrosis; I95.9 Hypotension, unspecified; H53.2 Diplopia; K57.90 Diverticulosis of intestine, part unspecified, without perforation or abscess without bleeding; I48.0 Paroxysmal atrial fibrillation; K66.0 Peritoneal adhesions (postprocedural) (postinfection); R41.3 Other amnesia; H50.9 Unspecified strabismus; G47.33 Obstructive sleep apnea (adult) (pediatric); E87.6 Hypokalemia; K76.0 Fatty (change of) liver, not elsewhere classified; I10 Essential (primary) hypertension; N40.0 Benign prostatic hyperplasia without lower urinary tract symptoms; Z87.01 Personal history of pneumonia (recurrent); Z87.820 Personal history of traumatic brain injury; Z82.49 Family history of ischemic heart disease and other diseases of the circulatory system; Z80.8 Family history of malignant neoplasm of other organs or systems; Z95.2 Presence of prosthetic heart valve; Z87.440 Personal history of urinary (tract) infections; Z72.89 Other problems related to lifestyle; S06.890S Other specified intracranial injury without loss of consciousness, sequela
CPT/HCPCS: 36415; 71045; 74018; 74420; 76705; 76770; 78226; 80048; 80053; 80076; 81003; 81015; 82140; 82150; 82570; 83690; 83735; 84300; 85025; 85610; 85730; 86140; 86850; 86900; 86901; 87086; 88304; 93005; 99284; A9270-GY; A9537; C1876; J0696; J1100; J2001; J2250; J2543; J2704; J3010; J3475

== ENCOUNTER 2017-11-10 17:04 | Emergency (ER) | payer MEDICARE ==
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
[2017-11-10 17:47] LABS: ABS Basophils 0.1 10^3/ul (0-0.2); ABS Eosinophils 0.1 10^3/ul (0-0.6); ABS Lymphocytes 1.2 10^3/ul (1.0-4.8); ABS Monocytes 1.1 10^3/ul (0-0.8); ABS Neutrophils 14.3 10^3/ul (1.5-7.7); ABS Nucleated RBC 0 10^3/ul; Eosinophil % 0.7 % (0-6); Hematocrit 30 % (42-52); Lymphocyte % 6.9 % (25-47); Mean Corpuscular HGB Conc 34 g/dl (31-36); Mean Corpuscular Hemoglobin 29 pg (27-31); Mean Corpuscular Volume 86 fL (80-94); Mean Platelet Volume 8.6 um3 (7.4-10.4); Nucleated Red Blood Cells % 0; Platelet Count 282 10^3/ul (150-450); Red Blood Count 3.46 10^6/ul (4.00-5.40); Red Cell Distribution Width 16 % (10.5-15); White Blood Count 16.7 10^3/ul (3.5-10.8)
[2017-11-10 18:03] LABS: EGFR Non-African American 81.8 (>60)
--- NOTE | 2017-11-10 18:18 | RAD ---
CLINICAL HISTORY: Suprapubic pain and difficulty urinating. Relevant history includes previous left ureteral stent for left-sided stone and cholecystectomy. COMPARISON: Most recent CT examination is dated August 20, 2017 TECHNIQUE: Noncontrast CT examination of the abdomen and pelvis from the lung bases through the initial tuberosities. FINDINGS: VISUALIZED LUNG BASES: There is stable pleural-based density along the lateral aspect of the left lower lobe abutting the fissure unchanged from the prior CT of the chest. There is mild centrilobular emphysematous changes and bronchiectatic dilatation of the medium and small airways. There is no pleural effusion. ABDOMEN AND PELVIS: Evaluation of the solid organs and vasculature is limited without intravenous contrast. The liver, spleen, pancreas and adrenal glands are grossly normal in appearance. The gallbladder is surgically absent with surgical clips in the gallbladder fossa. The right kidney is normal in appearance without focal mass, calcification or signs of hydronephrosis. There is mild to moderate left-sided hydronephrosis. There is amorphous hyperattenuating material in the lower half of the dilated left collecting system. Relative to the previous CT examination the large stone burden has been removed. The ureter is dilated measuring just under 1 cm in diameter. There is amorphous hyperattenuating material in the dependent portion of the urinary bladder likely hemorrhage and/or thrombus. The urinary bladder measures 8.8 cm transverse and 9.2 x 15.5 cm in the sagittal plane yielding an approximate volume of 1016 mL. Evaluation of the gastrointestinal tract is limited without oral contrast. The small and large bowel are not distended.The patient's normal appendix is identified in the right lower quadrant with gas in the lumen measuring 6 mm in diameter (axial image 83). There are scattered rectosigmoid diverticula but none exhibit focal inflammatory changes characteristic of diverticulitis. There is no gross retroperitoneal or mesenteric lymphadenopathy. The pelvic viscera is normal in appearance. The mildly calcified abdominal aorta and iliac arteries are normal in course and diameter. Degenerative changes include multilevel loss of intervertebral disc height involving the lower thoracic and lumbar spine.There are no sinister bone lesions. IMPRESSION: 1. There is moderate left-sided hydronephrosis with amorphous hyperattenuating material in the dependent left collecting system, scattered in the mildly dilated left ureter in the dependent portion of the urinary bladder. Hemorrhage and/or thrombus is suspected. The large calcium burden seen on the August 20, 2017 CT examination has been removed as well as the left ureteral stent. 2. The urinary bladder, and addition to likely having thrombus in the dependent portion measures an approximate volume of just over 1 L consistent with bladder outlet obstruction versus neurogenic bladder. 3. There are additional chronic, degenerative and iatrogenic findings described in the body the report.
[2017-11-10] MEDS ORDERED: Sulfamethox/Trimethoprim DS 800/160* TAB PO ONE ×2 (19:44)
[2017-11-10] MEDS ORDERED: Tamsulosin CAP* 0.4 MG PO ONE (19:44)
[2017-11-10 20:34] LABS: Urine Appearance Clear; Urine Blood 2+ (Negative); Urine Ketones Negative (Negative); Urine Protein 2+(100 mg/dL) (Negative); Urine Red Blood Cell 3+(>10/hpf) (Absent); Urine Specific Gravity 1.006 (1.010-1.030); Urine Urobilinogen Negative (Negative); Urine White Blood Cell 3+(>20/hpf) (Absent)
[2017-11-10 20:35] LABS: Urine Color Red
[2017-11-10 21:20] VITALS: BP 113/76
== END 2017-11-10 21:25 | disposition home or self-care (01) ==
LOC: ED 17:04
DX: R33.9 Retention of urine, unspecified (principal); R31.9 Hematuria, unspecified
CPT/HCPCS: 36415; 74176; 80053; 81003; 81015; 83605; 83690; 85025; 85610; 85730; 86140; 87086; 99283; A9270-GY

== ENCOUNTER 2020-09-06 17:55 | Inpatient (IN) ==
[2020-09-06 21:46] LABS: ABS Lymphocytes 0.4 10^3/ul (1.0-4.8); ABS Monocytes 0.4 10^3/ul (0-0.8); ABS Neutrophils 5.3 10^3/ul (1.5-7.7); Hematocrit 47 % (42-52); Hemoglobin 15.3 g/dL (14.0-18.0); Lymphocyte % 6.7 %; Mean Corpuscular HGB Conc 33 g/dL (31-36); Mean Corpuscular Hemoglobin 29 pg (27-31); Mean Corpuscular Volume 88 fL (80-94); Mean Platelet Volume 9.2 fL (7.4-10.4); Nucleated Red Blood Cells % 0.1; Platelet Count 142 10^3/uL (150-450); Red Blood Count 5.31 10^6 /uL (4.18-5.48); Red Cell Distribution Width 15 % (10-15); White Blood Count 6.2 10^3/uL (3.5-10.8)
[2020-09-06 21:55] LABS: Troponin I 0.06 ng/mL (<0.03)
[2020-09-06 21:56] LABS: Urine Appearance Cloudy; Urine Bilirubin Negative (Negative); Urine Blood 3+ (Negative); Urine Color Amber; Urine Glucose Negative (Negative); Urine Ketones Negative (Negative); Urine Nitrite Negative (Negative); Urine Protein 2+(100 mg/dL) (Negative); Urine Specific Gravity 1.023 (1.002-1.030); Urine Urobilinogen Negative (Negative)
[2020-09-06 22:03] LABS: Urine Bacteria Absent (Absent); Urine Red Blood Cell 2+(6-10/hpf) (Absent); Urine Squamous Epithelial Cell Present (Absent); Urine White Blood Cell Trace(0-5/hpf) (Absent)
[2020-09-06 22:04] LABS: ALT 102 U/L (7-52); AST 414 U/L (13-39); Albumin 3.6 g/dL (3.2-5.2); Albumin/Globulin Ratio 1.2 (1-3); Alkaline Phosphatase 68 U/L (35-149); Anion Gap 8 mmol/L (2-11); Blood Urea Nitrogen 16 mg/dL (6-24); CO2 Carbon Dioxide 26 mmol/L (22-32); Calcium 8.4 mg/dL (8.6-10.3); Chloride 99 mmol/L (101-111); EGFR African American 109.3 (>60); EGFR Non-African American 90.3 (>60); Globulin 2.9 g/dL (2-4); Glucose 119 mg/dL (70-100); Potassium 3.5 mmol/L (3.5-5.0); Sodium 133 mmol/L (135-145); Total Protein 6.5 g/dL (6.4-8.9)
[2020-09-06 22:05] LABS: Alcohol, S < 10 mg/dL (<10)
[2020-09-06 22:26] LABS: Urine Benzodiazepine Screen None Detected (None Detect); Urine Cannabinoids Screen None Detected (None Detect); Urine Opiates Screen None Detected (None Detect)
[2020-09-06] MEDS ORDERED: NS 0.9% IV ONE (23:45)
[2020-09-06] MEDS ORDERED: cefTRIAXone 1 gm/50 mL NS BAG 1 GM/50 ML BAG IV ONE (23:58)
[2020-09-07] MEDS ORDERED: Iodixanol (CONTRAST) 320 MG/ML 100 ML SDV IV ONE (00:16)
[2020-09-07] MEDS ORDERED: Ondansetron 4 mg VIAL 2 MG/ML 2 ml VIAL IV PRN (00:21)
[2020-09-07] MEDS ORDERED: NS 0.9% 1000 ml BAG 1,000 ML IV SCH (00:30)
[2020-09-07 00:43] LABS: Creatine Kinase 23193 U/L (10-223)
[2020-09-07 01:05] LABS: Magnesium 1.9 mg/dL (1.9-2.7)
[2020-09-07] MEDS: NS 0.9% 1000 ml BAG 1,000 ML IV SCH ×3 (01:21→17:22)
[2020-09-07] MEDS: DOXYcycline 100 MG in NS 0.9% 250 ml 250 ML IVPB SCH ×2 (01:39→17:23)
[2020-09-07 02:10] LABS: Anion Gap 7 mmol/L (2-11); Blood Urea Nitrogen 16 mg/dL (6-24); CO2 Carbon Dioxide 23 mmol/L (22-32); Calcium 7.3 mg/dL (8.6-10.3); Chloride 100 mmol/L (101-111); EGFR African American 122.7 (>60); EGFR Non-African American 101.4 (>60); Glucose 129 mg/dL (70-100); Potassium 3.2 mmol/L (3.5-5.0); Sodium 130 mmol/L (135-145)
[2020-09-07] MEDS ORDERED: Potassium Chlor 20 meq TAB.ER PO ONE (02:12)
[2020-09-07 02:17] LABS: Troponin I 0.05 ng/mL (<0.03)
[2020-09-07 02:59] LABS: Activated Partial Thrombo Time 34.2 seconds (26.0-38.0); INR 1.48 (0.86-1.15)
[2020-09-07 03:18] LABS: Influenza A Molecular Negative (Negative); Influenza B Molecular Negative (Negative)
[2020-09-07 03:59] LABS: RBC Parasite Smear No Parasites Seen (No Parasite)
[2020-09-07] MEDS ORDERED: Calcium Gluconate 2 GM in NS 0.9% 100 ml BAG 100 ML IV ONE (05:15)
[2020-09-07] MEDS: Heparin 5000 UNITS/ML 1 mL VIAL SUBCUT SCH ×3 (05:52→21:29)
[2020-09-07 07:42] LABS: Hematocrit 43 % (42-52); Hemoglobin 14.4 g/dL (14.0-18.0); Mean Corpuscular HGB Conc 34 g/dL (31-36); Mean Corpuscular Hemoglobin 30 pg (27-31); Mean Corpuscular Volume 88 fL (80-94); Mean Platelet Volume 9.2 fL (7.4-10.4); Platelet Count 113 10^3/uL (150-450); Red Blood Count 4.87 10^6 /uL (4.18-5.48); Red Cell Distribution Width 15 % (10-15); White Blood Count 5.3 10^3/uL (3.5-10.8)
[2020-09-07 07:46] LABS: ABS Lymphocytes 0.3 10^3/ul (1.0-4.8); ABS Monocytes 0.6 10^3/ul (0-0.8); ABS Neutrophils 4.3 10^3/ul (1.5-7.7); Lymphocyte % 6.6 %
[2020-09-07 07:47] LABS: INR 1.24 (0.86-1.15)
[2020-09-07 08:04] LABS: Albumin 3.1 g/dL (3.2-5.2); Albumin/Globulin Ratio 1.2 (1-3); Calcium 7.8 mg/dL (8.6-10.3); Direct Bilirubin 0.2 mg/dL (0.03-0.18); EGFR Non-African American 94.2 (>60); Globulin 2.5 g/dL (2-4); Indirect Bilirubin 0.4 mg/dL (0.3-1.0); Potassium 3.9 mmol/L (3.5-5.0); Total Bilirubin 0.6 mg/dL (0.2-1.0); Total Protein 5.6 g/dL (6.4-8.9)
[2020-09-07 09:44] LABS: RBC Morphology Normal (Normal)
[2020-09-07 13:49] LABS: C Reactive Protein 115.42 mg/L (<8.01)
[2020-09-07 15:22] LABS: Erythrocyte Sed Rate 5 mm/Hr (0-19)
[2020-09-07 16:04] LABS: Hepatitis B Surface Antigen Nonreactive (Nonreactive)
[2020-09-07 16:09] LABS: Hepatitis A Ab IgM Negative (Negative)
[2020-09-07 16:10] LABS: Hepatitis B Core IgM Nonreactive (Nonreactive)
[2020-09-07 16:22] LABS: Hepatitis C Antibody Negative (Negative)
[2020-09-07] MEDS ORDERED: cefTRIAXone 2 GM ADDV.VIAL 2 GM in NS 0.9% 100 ml BAG 100 ML IV SCH (19:00)
[2020-09-07] MEDS ORDERED: cefTRIAXone 1 gm/50 mL NS BAG 1 GM/50 ML BAG IVPB SCH (21:00)
[2020-09-08] MEDS: NS 0.9% 1000 ml BAG 1,000 ML IV SCH ×2 (00:49→11:01)
[2020-09-08] MEDS ORDERED: Magnesium Sulf 4 GM/100 ML IV 4,000 MG/100 ML BAG IVPB ONE (00:56)
[2020-09-08] MEDS: Heparin 5000 UNITS/ML 1 mL VIAL SUBCUT SCH ×3 (05:16→20:18)
[2020-09-08] MEDS ORDERED: cefTRIAXone 1 gm/50 mL NS BAG 1 GM/50 ML BAG IVPB SCH (06:00)
[2020-09-08 07:12] LABS: Hematocrit 40 % (42-52); Hemoglobin 13.3 g/dL (14.0-18.0); Mean Corpuscular HGB Conc 33 g/dL (31-36); Mean Corpuscular Hemoglobin 30 pg (27-31); Mean Corpuscular Volume 88 fL (80-94); Mean Platelet Volume 9.6 fL (7.4-10.4); Platelet Count 115 10^3/uL (150-450); Red Cell Distribution Width 15 % (10-15); White Blood Count 4.5 10^3/uL (3.5-10.8)
[2020-09-08 07:30] LABS: Albumin 2.7 g/dL (3.2-5.2); Albumin/Globulin Ratio 1.1 (1-3); Calcium 7.4 mg/dL (8.6-10.3); EGFR African American 139.5 (>60); EGFR Non-African American 115.3 (>60); Globulin 2.4 g/dL (2-4); Potassium 3.6 mmol/L (3.5-5.0); Total Bilirubin 0.4 mg/dL (0.2-1.0); Total Protein 5.1 g/dL (6.4-8.9)
[2020-09-08 09:22] LABS: RBC Morphology Normal (Normal)
[2020-09-08 09:23] LABS: ABS Lymphocytes 0.7 10^3/ul (1.0-4.8); ABS Monocytes 0.9 10^3/ul (0-0.8); ABS Neutrophils 2.9 10^3/ul (1.5-7.7); Eosinophil % 0.3 %; Lymphocyte % 16.4 %
[2020-09-08] MEDS: Albuterol HFA INHALER 8 gm MDI INH PRN (23:54)
[2020-09-09 01:13] LABS: IgG Immunoblot Negative (Negative); IgM Immunoblot Negative (Negative)
[2020-09-09] MEDS: Heparin 5000 UNITS/ML 1 mL VIAL SUBCUT SCH ×3 (05:08→21:20)
[2020-09-09 06:14] LABS: Calcium 7.6 mg/dL (8.6-10.3); EGFR African American 164.3 (>60); EGFR Non-African American 135.8 (>60); Potassium 3.2 mmol/L (3.5-5.0)
[2020-09-09] MEDS ORDERED: Potassium Chlor 20 meq TAB.ER PO ONE (07:59)
[2020-09-09 08:30] LABS: Magnesium 1.7 mg/dL (1.9-2.7)
[2020-09-09] MEDS ORDERED: Magnesium Sulfate 2 gm BAG 2 GM/50 ML BAG IVPB ONE (09:42)
[2020-09-09] MEDS: Albuterol HFA INHALER 8 gm MDI INH PRN (10:26)
[2020-09-09 11:58] LABS: Anaplasma phagocytophilum Positive (Negative); B. miyamotoi PCR, B Negative (Negative); Babesia divergens/MO-1 Negative (Negative); Babesia ducani Negative (Negative); Ehrlichia chaffeensis Negative (Negative); Ehrlichia ewingii/canis Negative (Negative); Ehrlichia muris eauclairensis Negative (Negative)
[2020-09-09 22:45] LABS: Adenovirus F40/41 Negative (Negative); Astrovirus Negative (Negative); Cryptosporidium species Negative (Negative); Cyclospora cayetanensis Negative (Negative); Entamoeba histolytica Negative (Negative); Enteroaggregative E.coli(EAEC) Negative (Negative); Enteropathogenic Ecoli(EPEC) Negative (Negative); Enterotoxigenic Ecoli(ETEC) Negative (Negative); Norovirus GI/GII Negative (Negative); Plesiomonas shigelloides Negative (Negative); Salmonella species Negative (Negative); Sapovirus Negative (Negative); Shiga toxin producing E. coli Negative (Negative); Shigella/Enteroinvasive E.coli Negative (Negative); Specimen Source STOOL; Vibrio cholerae Negative (Negative); Yersinia species Negative (Negative)
[2020-09-10] MEDS: Heparin 5000 UNITS/ML 1 mL VIAL SUBCUT SCH ×3 (05:34→21:59)
[2020-09-10 07:04] LABS: ABS Eosinophils 0.2 10^3/ul (0-0.6); ABS Monocytes 0.8 10^3/ul (0-0.8); ABS Neutrophils 4.3 10^3/ul (1.5-7.7); Eosinophil % 2.8 %; Hematocrit 42 % (42-52); Hemoglobin 14.1 g/dL (14.0-18.0); Lymphocyte % 16.3 %; Mean Corpuscular HGB Conc 34 g/dL (31-36); Mean Corpuscular Hemoglobin 30 pg (27-31); Mean Corpuscular Volume 88 fL (80-94); Mean Platelet Volume 9.2 fL (7.4-10.4); Platelet Count 159 10^3/uL (150-450); Red Blood Count 4.76 10^6 /uL (4.18-5.48); Red Cell Distribution Width 15 % (10-15); White Blood Count 6.3 10^3/uL (3.5-10.8)
[2020-09-10 07:23] LABS: Calcium 8.2 mg/dL (8.6-10.3); EGFR Non-African American 141.3 (>60); Magnesium 1.7 mg/dL (1.9-2.7); Potassium 3.3 mmol/L (3.5-5.0)
[2020-09-10] MEDS ORDERED: Potassium Chlor 20 meq TAB.ER PO ONE (08:45)
[2020-09-10] MEDS ORDERED: Magnesium Sulfate IV 3 GM in NS 0.9% 100 ml BAG 100 ML IVPB ONE (08:45)
[2020-09-11 05:43] LABS: Albumin 2.9 g/dL (3.2-5.2); Calcium 8.3 mg/dL (8.6-10.3); Direct Bilirubin 0.1 mg/dL (0.03-0.18); EGFR African American 144.4 (>60); EGFR Non-African American 119.3 (>60); Indirect Bilirubin 0.6 mg/dL (0.3-1.0); Magnesium 1.9 mg/dL (1.9-2.7); Potassium 3.4 mmol/L (3.5-5.0); Total Bilirubin 0.7 mg/dL (0.2-1.0); Total Protein 5.9 g/dL (6.4-8.9)
[2020-09-11] MEDS: Heparin 5000 UNITS/ML 1 mL VIAL SUBCUT SCH ×3 (06:03→22:22)
[2020-09-11] MEDS ORDERED: Potassium Chlor 20 meq TAB.ER PO ONE (07:55)
[2020-09-11] MEDS ORDERED: Magnesium Sulfate 2 gm BAG 2 GM/50 ML BAG IVPB ONE (21:58)
[2020-09-11 22:34] LABS: Calcium 8.6 mg/dL (8.6-10.3); EGFR African American 139.5 (>60); EGFR Non-African American 115.3 (>60); Potassium 3.9 mmol/L (3.5-5.0)
[2020-09-11] MEDS ORDERED: Potassium Chlor 10 meq TAB PO ONE (22:56)
[2020-09-12] MEDS: Heparin 5000 UNITS/ML 1 mL VIAL SUBCUT SCH ×3 (05:36→23:41)
[2020-09-12 07:19] LABS: Calcium 8.3 mg/dL (8.6-10.3); EGFR African American 137.2 (>60); EGFR Non-African American 113.4 (>60); Globulin 2.9 g/dL (2-4); Magnesium 2.1 mg/dL (1.9-2.7); Potassium 3.9 mmol/L (3.5-5.0); Total Bilirubin 0.8 mg/dL (0.2-1.0); Total Protein 5.9 g/dL (6.4-8.9)
[2020-09-13] MEDS: Heparin 5000 UNITS/ML 1 mL VIAL SUBCUT SCH ×3 (04:56→21:05)
[2020-09-13 06:56] LABS: Albumin 3.2 g/dL (3.2-5.2); Calcium 8.6 mg/dL (8.6-10.3); EGFR African American 130.6 (>60); EGFR Non-African American 107.9 (>60); Globulin 3.1 g/dL (2-4); Potassium 3.9 mmol/L (3.5-5.0); Total Bilirubin 0.9 mg/dL (0.2-1.0); Total Protein 6.3 g/dL (6.4-8.9)
[2020-09-13 08:00] LABS: Magnesium 1.9 mg/dL (1.9-2.7)
[2020-09-13] MEDS ORDERED: Potassium Chlor 10 meq TAB PO ONE (15:49)
[2020-09-13] MEDS ORDERED: Magnesium Sulfate IV 1GM/100ML 1 GM/100 ML BAG IV ONE (15:49)
[2020-09-14 05:55] LABS: Albumin 3.2 g/dL (3.2-5.2); Albumin/Globulin Ratio 1.2 (1-3); Calcium 8.5 mg/dL (8.6-10.3); EGFR African American 130.6 (>60); EGFR Non-African American 107.9 (>60); Globulin 2.7 g/dL (2-4); Magnesium 2.1 mg/dL (1.9-2.7); Potassium 4.1 mmol/L (3.5-5.0); Total Bilirubin 0.8 mg/dL (0.2-1.0); Total Protein 5.9 g/dL (6.4-8.9)
[2020-09-14] MEDS: Heparin 5000 UNITS/ML 1 mL VIAL SUBCUT SCH (06:13)
[2020-09-14 12:06] VITALS: BP 101/58
== END 2020-09-14 12:15 | disposition home or self-care (01) | DRG 872 ==
LOC: ED 17:55 → MED 09-07 01:14
PROVIDERS: ADMIT Internal Medicine; ATTEND Student in an Organized Health Care Education/Training Program

== ENCOUNTER 2021-05-15 16:23 | Inpatient (IN) ==
[2021-05-15 18:17] LABS: ABS Basophils 0.1 10^3/ul (0-0.2); ABS Eosinophils 0.3 10^3/ul (0-0.6); ABS Monocytes 0.7 10^3/ul (0-0.8); ABS Neutrophils 4.4 10^3/ul (1.5-7.7); Eosinophil % 4.4 %; Hematocrit 43 % (42-52); Hemoglobin 14.3 g/dL (14.0-18.0); Lymphocyte % 15.8 %; Mean Corpuscular HGB Conc 33 g/dL (31-36); Mean Corpuscular Hemoglobin 29 pg (27-31); Mean Corpuscular Volume 88 fL (80-94); Mean Platelet Volume 8.5 fL (7.4-10.4); Platelet Count 249 10^3/uL (150-450); Red Blood Count 4.91 10^6 /uL (4.18-5.48); Red Cell Distribution Width 14 % (10-15); White Blood Count 6.5 10^3/uL (3.5-10.8)
[2021-05-15 18:20] LABS: Urine Appearance Clear; Urine Bilirubin Negative (Negative); Urine Blood 1+ (Negative); Urine Color Straw; Urine Glucose Negative (Negative); Urine Ketones Negative (Negative); Urine Nitrite Negative (Negative); Urine Protein 1+(30 mg/dL) (Negative); Urine Specific Gravity 1.005 (1.002-1.030); Urine Urobilinogen Negative (Negative)
[2021-05-15 18:24] LABS: Urine Amorphous Crystals Present (Absent); Urine Bacteria 1+ (Absent); Urine Red Blood Cell Trace(0-2/hpf) (Absent); Urine White Blood Cell Trace(0-5/hpf) (Absent)
[2021-05-15 19:00] LABS: ALT 16 U/L (7-52); AST 19 U/L (13-39); Albumin 3.6 g/dL (3.2-5.2); Albumin/Globulin Ratio 1.4 (1-3); Alkaline Phosphatase 72 U/L (35-149); Anion Gap 7 mmol/L (2-11); Blood Urea Nitrogen 14 mg/dL (6-24); CO2 Carbon Dioxide 26 mmol/L (22-32); Calcium 8.1 mg/dL (8.6-10.3); Chloride 107 mmol/L (101-111); Globulin 2.5 g/dL (2-4); Glucose 108 mg/dL (70-100); Sodium 140 mmol/L (135-145); Total Protein 6.1 g/dL (6.4-8.9); eGFR CKD-EPI 98.5 (>60)
[2021-05-15] MEDS ORDERED: Diltiazem (ADVAN VIAL) 100 MG/100 ML ADDV.BAG IV SCH (19:00)
[2021-05-15 19:03] LABS: Troponin I 0.03 ng/mL (<0.03)
[2021-05-15] MEDS ORDERED: Diltiazem IV push/loading dose 5 MG/ML 5 ML vial (25 mg) IV SLOW PU ONE (19:45)
[2021-05-15] MEDS ORDERED: Metoprolol Tartrate 5 mg VIAL 5 ml VIAL (1 mg/ml) IV ONE (21:44)
[2021-05-15 22:08] LABS: Troponin I 0.03 ng/mL (<0.03)
[2021-05-15] MEDS ORDERED: Furosemide 20 mg/2 ml IV VIAL IV SLOW PU ONE (22:52)
[2021-05-15] MEDS: Diltiazem (ADVAN VIAL) 100 MG/100 ML ADDV.BAG IV SCH (23:19)
[2021-05-16 01:53] LABS: Troponin I 0.02 ng/mL (<0.03)
[2021-05-16] MEDS: Diltiazem (ADVAN VIAL) 100 MG/100 ML ADDV.BAG IV SCH ×2 (03:38→22:11)
[2021-05-16 06:23] LABS: ABS Eosinophils 0.3 10^3/ul (0-0.6); ABS Lymphocytes 1.2 10^3/ul (1.0-4.8); ABS Monocytes 0.7 10^3/ul (0-0.8); ABS Neutrophils 4.5 10^3/ul (1.5-7.7); Eosinophil % 4.2 %; Hematocrit 43 % (42-52); Hemoglobin 14.1 g/dL (14.0-18.0); Lymphocyte % 17.2 %; Mean Corpuscular HGB Conc 33 g/dL (31-36); Mean Corpuscular Hemoglobin 29 pg (27-31); Mean Corpuscular Volume 88 fL (80-94); Mean Platelet Volume 8.4 fL (7.4-10.4); Nucleated Red Blood Cells % 0.1; Platelet Count 251 10^3/uL (150-450); Red Blood Count 4.91 10^6 /uL (4.18-5.48); Red Cell Distribution Width 15 % (10-15); White Blood Count 6.7 10^3/uL (3.5-10.8)
[2021-05-16 06:54] LABS: Albumin 3.3 g/dL (3.2-5.2); Albumin/Globulin Ratio 1.4 (1-3); Calcium 8.2 mg/dL (8.6-10.3); Globulin 2.4 g/dL (2-4); HDL Cholesterol 35.5 mg/dL; Magnesium 1.8 mg/dL (1.9-2.7); Potassium 3.5 mmol/L (3.5-5.0); Total Bilirubin 1.1 mg/dL (0.2-1.0); Total Protein 5.7 g/dL (6.4-8.9); eGFR CKD-EPI 98.5 (>60)
[2021-05-16] MEDS ORDERED: Magnesium Sulfate IV 1GM/100ML 1 GM/100 ML BAG IV ONE (07:14)
[2021-05-16] MEDS: KCL 10 MEQ/50 ML IVPREMIX 10 MEQ/50 ML BAG IV SCH ×3 (08:36→12:23)
[2021-05-16] MEDS ORDERED: Perflutren Lipid Microsphere 3 ML VIAL ONE (10:22)
[2021-05-16] MEDS ORDERED: Magnesium Sulfate 2 gm BAG 2 GM/50 ML BAG IVPB ONE (10:43)
[2021-05-17 01:17] LABS: INR 1.76 (0.86-1.15)
[2021-05-17 06:52] LABS: Calcium 8.6 mg/dL (8.6-10.3); Magnesium 2.1 mg/dL (1.9-2.7); Potassium 3.9 mmol/L (3.5-5.0); eGFR CKD-EPI 98.1 (>60)
[2021-05-17] MEDS ORDERED: Naloxone 0.4 mg VIAL 0.4 mg/ml 1 ml VIAL ONE (14:17)
[2021-05-17] MEDS ORDERED: Midazolam 5 mg/5 ml VIAL 1 mg/ml 5 ml VIAL (5 mg) ONE (14:17)
[2021-05-17] MEDS ORDERED: Flumazenil 0.5 mg/5 ml 0.1 MG/ML 5 ml VIAL ONE (14:17)
[2021-05-17] MEDS ORDERED: fentaNYL 100 mcg/2 ml 50 MCG/ML VIAL ONE (14:17)
[2021-05-18] MEDS ORDERED: Potassium Chlor 20 meq TAB.ER PO ONE (07:18)
[2021-05-18 12:40] VITALS: BP 121/81
== END 2021-05-18 17:50 | disposition home or self-care (01) | DRG 310 ==
LOC: ED 16:23 → SUATTDRO 22:52 → EDHOLD 22:52 → MEDTELE 05-16 11:30
PROVIDERS: ADMIT Student in an Organized Health Care Education/Training Program; ATTEND Internal Medicine